=== PATIENT | male | born 1950 | race Hispanic/Latino ===

== ENCOUNTER 2017-12-12 12:53 | Observation (INO) | payer MEDICARE, BC ==
--- NOTE | 2017-12-12 14:36 | ED PDOC ---
HPI: General Adult Time Seen by Provider: 12/12/17 13:59 Chief Complaint (Nursing): Pacemaker Problem Chief Complaint (Provider): Pacemaker Problem History Per: Patient History/Exam Limitations: no limitations Onset/Duration Of Symptoms: Days (x 1) Current Symptoms Are (Timing): Still Present Additional Complaint(s): 67 year old male with a history of CHF, CAD, CABG, atrial fibrillation and a pacemaker/ defibrillator presents to the ED after a pacemaker shock which happened earlier today. Patient reports his pacemaker shocked him, bringing him to his knees. When he tried to get up, he was jolted again. The first time stronger than the latter. He takes Eliquis and Lasix regularly. Denies a history of cardiac stents, chest pain, shortness of breath, leg swelling and loss of consciousness. PMD: Dr. Lazarus Rosas paper cleaner: Dr. Skinner in [place] Past Medical History Reviewed: Historical Data, Nursing Documentation, Vital Signs Vital Signs: Last Vital Signs Temp 97.8 F 12/13/17 12:20 Pulse 80 12/13/17 12:20 Resp 13 12/13/17 12:20 BP 119/67 12/13/17 12:20 Pulse Ox 97 12/13/17 12:20 - Medical History PMH: Atrial Fibrillation, Cardia Arrhythmia, HTN, Hypercholesterolemia, Peripheral Edema Denies: CHF, Chronic Kidney Disease - Surgical History Surgical History: CABG, Pacemaker - Family History Family History: States: Unknown Family Hx - Home Medications Home Medications: Ambulatory Orders Medication Instructions Recorded Apixaban [Eliquis] 2.5 mg PO Q12 12/12/17 Aspirin [Ecotrin] 81 mg PO DAILY 12/12/17 Atorvastatin [Lipitor] 20 mg PO HS 12/12/17 Dapagliflozin Propanediol [Farxiga] 5 mg PO DAILY 12/12/17 Ferrous Sulfate [Feosol] 325 mg PO DAILY 12/12/17 Furosemide [Lasix] 40 mg PO BID 12/12/17 Insulin Detemir [Levemir] 25 unit SC HS 12/12/17 Multivitamin/Iron/Folic Acid 1 tab PO DAILY 12/12/17 [Centrum Complete Multivit Tab] Omeprazole 40 mg PO DAILY 12/12/17 Sacubitril/Valsartan [Entresto 49 1 tab PO Q12 07/30/18 mg-51 mg] Metoprolol Tartrate [Lopressor] 100 mg PO BID #0 12/13/17 - Allergies Allergies/Adverse Reactions: Allergies Allergy/AdvReac Type Severity Reaction Status Date / Time No Known Allergies Allergy Verified 04/10/15 22:34 Review of Systems ROS Statement: Except As Marked, All Systems Reviewed And Found Negative Cardiovascular: Positive for: Other (pacemaker problem). Negative for: Chest Pain, Palpitations Respiratory: Negative for: Shortness of Breath Musculoskeletal: Negative for: Leg Pain (or swelling) Physical Exam - Reviewed Nursing Documentation Reviewed: Yes Vital Signs Reviewed: Yes - Physical Exam Appears: Positive for: Non-toxic, No Acute Distress Head Exam: Positive for: ATRAUMATIC, NORMAL INSPECTION, NORMOCEPHALIC Skin: Positive for: Normal Color, Warm, Dry Eye Exam: Positive for: EOMI, Normal appearance, PERRL Neck: Positive for: Normal, Painless ROM Cardiovascular/Chest: Positive for: Regular Rate, Rhythm, Other (pacemaker/ defibrillator present). Negative for: Murmur Respiratory: Positive for: Normal Breath Sounds. Negative for: Respiratory Distress Gastrointestinal/Abdominal: Positive for: Normal Exam, Soft Extremity: Positive for: Normal ROM (x 4). Negative for: Deformity (leg) Neurologic/Psych: Positive for: Alert, Oriented (x 3). Negative for: Motor/ Sensory Deficits - Laboratory Results Result Diagrams: 12/13/17 06:00 12/13/17 06:00 - ECG ECG: Positive for: Interpreted By Me, Viewed By Me ECG Rhythm: Positive for: Sinus Rhythm, Left Bundle Branch Block, ST/T Changes ( non specific ) Rate: 90 O2 Sat by Pulse Oximetry: 97 (RA) Pulse Ox Interpretation: Normal Medical Decision Making Medical Decision Makin:28 Impression: defibrillator shock Differential diagnoses include but are not limited to: cardiac arrhythmia, pacemaker malfunction Initial Plan: --EKG --BMP --Digoxin --Troponin I --CBC --CXR EKG: Sinus rhythm at 90 bpm; PVCs are present; Left branch bundle block; Left axis deviation and non specific ST/T changes. ICD information: [facility] medical ICD: [id number] Serial number: [id number] Date implanted: 01/03/2012 16:50 --Consulted Dr. Frost due to elevated Troponin levels. --Spoke to Dr. Cortez who will admit patient to her service. CXR FINDINGS: LUNGS: No active pulmonary disease. PLEURA: No significant pleural effusion identified, no pneumothorax apparent. CARDIOVASCULAR: Cardiomegaly. No evidence of acute, significant cardiovascular disease. Position/ configuration of pacemaker\AICD device: Satisfactory. OSSEOUS STRUCTURES: No significant abnormalities. VISUALIZED UPPER ABDOMEN: Normal. OTHER FINDINGS: None. IMPRESSION: No active disease. No significant interval change compared to the prior examination(s). 17:32 --[facility] will send an associate to investigate the pacemaker/ defibrillator tomorrow. ---- Scribe Attestation: Documented by Lillian Ryan, acting as a scribe for Mauro Canela MD Provider Scribe Attestation: All medical record entries made by the Scribe were at my direction and personally dictated by me. I have reviewed the chart and agree that the record accurately reflects my personal performance of the history, physical exam, medical decision making, and the department course for this patient. I have also personally directed, reviewed, and agree with the discharge instructions and disposition. Disposition - Clinical Impression Clinical Impression: ICD (implantable cardioverter-defibrillator) discharge - Patient ED Disposition Is Patient to be Admitted: Yes Discussed With DrLaila: Allison Cortez Doctor Will See Patient In The: ED Counseled Patient/Family Regarding: Studies Performed, Diagnosis - Disposition Disposition Time: 16:50 Condition: FAIR - Pt Status Changed To: Hospital Disposition Of: Observation - POA Present On Arrival: None
[2017-12-12 16:10] LABS: BASO % 0.3 % (0.0-2.0); EOS # 0.3 K/uL (0.0-0.7); EOS % 3.4 % (0.0-4.0); HEMOGLOBIN 16.2 g/dL (12.0-18.0); LYMPH # 0.7 K/uL (1.0-4.3); LYMPH % 9.4 % (20.0-40.0); MEAN CELL VOLUME 99.2 fl (80.0-94.0); MEAN CORPUSCULAR HEMOGLOBIN 32.9 pg (27.0-31.0); MEAN CORPUSCULAR HGB CONC 33.1 g/dL (33.0-37.0); MEAN PLATELET VOLUME 8.8 fl (7.2-11.7); MONO # 0.7 K/uL (0.0-0.8); MONO % 9.2 % (0.0-10.0); NEUT # 5.9 K/uL (1.8-7.0); NEUT % 77.7 % (50.0-75.0); PLATELET COUNT 108 K/uL (130-400); RBC 4.92 Mil/uL (4.40-5.90); RED CELL DISTRIBUTION WIDTH 14.4 % (11.5-14.5); WHITE BLOOD COUNT 7.6 K/uL (4.8-10.8)
--- NOTE | 2017-12-12 16:10 | RAD ---
Date of service: 12/12/2017 HISTORY: pacemaker problem COMPARISON: 04/10/2015 FINDINGS: LUNGS: No active pulmonary disease. PLEURA: No significant pleural effusion identified, no pneumothorax apparent. CARDIOVASCULAR: Cardiomegaly. No evidence of acute, significant cardiovascular disease. Position/ configuration of pacemaker Satisfactory. OSSEOUS STRUCTURES: No significant abnormalities. VISUALIZED UPPER ABDOMEN: Normal. OTHER FINDINGS: None. IMPRESSION: No active disease. No significant interval change compared to the prior examination(s).
[2017-12-12 16:14] LABS: BLOOD UREA NITROGEN 31 mg/dl (9-20); CALCIUM 9.2 mg/dL (8.4-10.2); GFR AFRICAN-AMERICAN > 60; GFR NON-AFRICAN AMERICAN 55
[2017-12-12 17:08] LABS: INR 1.2 (0.9-1.2); PROTHROMBIN TIME 13.2 Seconds (9.8-13.1)
--- NOTE | 2017-12-12 17:59 | CP.PCM.HP ---
History of Present Illness - History of Present Illness History of Present Illness: CC: my defibrillator went off HPI: 67 year old male PMH CAD s/p CABG, CHF EF 25-30%, s/p ICD on Eliquis, HTN, IDDM presents to the ED today after his debrillator fired twice today. Patient denies any chest pain, dyspnea, no acute changes on EKG. Expected troponin elevation 0.4 on admission. Patient complete asymptomatic at this time. HD stable. [facility] to interrogate tomorrow, Dr. Rosendo Frost Cardiology consult. ROS: per HPI all other systems reviewed and negative Present on Admission - Present on Admission Any Indicators Present on Admission: No Past Patient History - Infectious Disease Hx of Infectious Diseases: None - Past Medical History & Family History Past Medical History?: Yes - Past Social History Smoking Status: Never Smoked - CARDIAC Hx Atrial Fibrillation: Yes Hx Cardia Arrhythmia: Yes Hx Congestive Heart Failure: No Hx Hypercholesterolemia: Yes Hx Hypertension: Yes Hx Pacemaker: Yes Hx Peripheral Edema: Yes - NEUROLOGICAL Hx Neurological Disorder: No - HEENT Hx HEENT Problems: Yes Other/Comment: wears eyeglasses - RENAL Hx Chronic Kidney Disease: No - ENDOCRINE/METABOLIC Hx Diabetes Mellitus Type 2: Yes - HEMATOLOGICAL/ONCOLOGICAL Hx Blood Disorders: No - INTEGUMENTARY Hx Dermatological Problems: No - MUSCULOSKELETAL/RHEUMATOLOGICAL Hx Musculoskeletal Disorders: No Hx Falls: No - GASTROINTESTINAL Hx Gastrointestinal Disorders: No - GENITOURINARY/GYNECOLOGICAL Hx Genitourinary Disorders: No - PSYCHIATRIC Hx Psychophysiologic Disorder: No Hx Substance Use: No - SURGICAL HISTORY Hx Coronary Artery Bypass Graft: Yes - ANESTHESIA Hx Anesthesia: Yes Hx Anesthesia Reactions: No Meds Allergies/Adverse Reactions: Allergies Allergy/AdvReac Type Severity Reaction Status Date / Time No Known Allergies Allergy Verified 04/10/15 22:34 Physical Exam - Constitutional Appears: Non-toxic, No Acute Distress - Head Exam Head Exam: ATRAUMATIC, NORMOCEPHALIC - Eye Exam Eye Exam: EOMI, Normal appearance, PERRL - ENT Exam ENT Exam: Mucous Membranes Moist, Normal Exam - Neck Exam Neck exam: Positive for: Full Rom - Respiratory Exam Respiratory Exam: Clear to Auscultation Bilateral, NORMAL BREATHING PATTERN. absent: Wheezes - Cardiovascular Exam Cardiovascular Exam: REGULAR RHYTHM, +S1, +S2 - GI/Abdominal Exam GI & Abdominal Exam: Normal Bowel Sounds, Soft. absent: Mass, Organomegaly - Extremities Exam Extremities exam: Positive for: normal capillary refill, pedal pulses present - Back Exam Back exam: absent: CVA tenderness (L), CVA tenderness (R) - Neurological Exam Neurological exam: Alert, Oriented x3 - Psychiatric Exam Psychiatric exam: Normal Affect, Normal Mood - Skin Skin Exam: Dry, Intact, Normal Color, Warm Results - Vital Signs Recent Vital Signs: Last Vital Signs Temp 97.6 F 12/12/17 12:55 Pulse 90 12/12/17 17:46 Resp 16 12/12/17 14:33 BP 112/61 12/12/17 14:33 Pulse Ox 97 12/12/17 17:46 - Labs Result Diagrams: 12/12/17 15:45 12/12/17 14:45 Labs: Laboratory Results - last 24 hr 12/12/17 12/12/17 12/12/17 14:45 14:45 15:45 WBC 7.6 RBC 4.92 Hgb 16.2 Hct 48.8 MCV 99.2 H MCH 32.9 H MCHC 33.1 RDW 14.4 Plt Count 108 L D MPV 8.8 Neut % (Auto) 77.7 H Lymph % (Auto) 9.4 L [place] % (Auto) 9.2 Eos % (Auto) 3.4 Baso % (Auto) 0.3 Neut # (Auto) 5.9 Lymph # (Auto) 0.7 L [place] # (Auto) 0.7 Eos # (Auto) 0.3 Baso # (Auto) 0.0 PT INR APTT Sodium 142 Potassium 4.9 Chloride 102 Carbon Dioxide 28 Anion Gap 17 BUN 31 H Creatinine 1.3 Est GFR ( Amer) > 60 Est GFR (Non-Af Amer) 55 Random Glucose 207 H Calcium 9.2 Troponin I 0.4690 H* Digoxin < 0.4 L 12/12/17 16:25 WBC RBC Hgb Hct MCV MCH MCHC RDW Plt Count MPV Neut % (Auto) Lymph % (Auto) [place] % (Auto) Eos % (Auto) Baso % (Auto) Neut # (Auto) Lymph # (Auto) [place] # (Auto) Eos # (Auto) Baso # (Auto) PT 13.2 H INR 1.2 APTT 34.0 Sodium Potassium Chloride Carbon Dioxide Anion Gap BUN Creatinine Est GFR ( Amer) Est GFR (Non-Af Amer) Random Glucose Calcium Troponin I Digoxin Assessment & Plan - Assessment and Plan (Free Text) Plan: 67 year old male PMH CAD s/p CABG, CHF EF 25-30%, s/p ICD on Eliquis, HTN, IDDM presents to the ED today after his debrillator fired twice today. Patient denies any chest pain, dyspnea, no acute changes on EKG. Expected troponin elevation 0.4 on admission. Patient complete asymptomatic at this time. HD stable. [facility] to interrogate tomorrow, Dr. Rosendo Frost Cardiology consult. ICD discharge x2 HFrEF 25-30% HTN [facility] to interrogate in am CARDIOLOGY consult Dr. Frost appreciated expected troponin elevation 0.4, trend enzymes pt on Eliquis continue home meds for BP control IDDM accuchecks levemir and ISS DVT ppx on Eliquis
[2017-12-12 18:30] LABS: BANDS 3 % (0-2); EOSINOPHIL 3 % (0-7); LYMPHOCYTE 11 % (20-50); MONOCYTE 6 % (0-10); NEUTROPHIL 77 % (42-75); PLATELET ESTIMATE SLIGHTLY DECREASED (NORMAL); TOTAL CELLS COUNTED 100
[2017-12-12 18:31] LABS: LARGE PLATELETS PRESENT; TOXIC GRANULATION PRESENT
[2017-12-12] MEDS ORDERED: SACUBITRIL PO SCH (21:00)
[2017-12-12] MEDS ORDERED: VALSARTAN PO SCH (21:00)
[2017-12-12] MEDS: Insulin Detemir 100 Units/ml Inj SC SCH ×3 (22:12→22:15)
[2017-12-12] MEDS: Insulin Lispro (humaLOG) 100 Units/ml Inj SC SCH (22:18)
[2017-12-13 06:42] LABS: HEMOGLOBIN 15.2 g/dL (12.0-18.0); MEAN CORPUSCULAR HEMOGLOBIN 33.1 pg (27.0-31.0); MEAN CORPUSCULAR HGB CONC 33.4 g/dL (33.0-37.0); RBC 4.6 Mil/uL (4.40-5.90); RED CELL DISTRIBUTION WIDTH 14.4 % (11.5-14.5); WHITE BLOOD COUNT 6.2 K/uL (4.8-10.8)
[2017-12-13 07:43] VITALS: O2SAT 97
[2017-12-13 07:44] LABS: BLOOD UREA NITROGEN 26 mg/dl (9-20); CALCIUM 8.7 mg/dL (8.4-10.2); GFR AFRICAN-AMERICAN > 60; GFR NON-AFRICAN AMERICAN > 60
[2017-12-13] MEDS: Insulin Lispro (humaLOG) 100 Units/ml Inj SC SCH ×2 (08:20→12:34)
--- NOTE | 2017-12-13 08:26 | CP.PCM.PN ---
Subjective - Date & Time of Evaluation Date of Evaluation: 12/13/17 Time of Evaluation: 08:26 Objective - Vital Signs/Intake and Output Vital Signs (last 24 hours): Temp Pulse Resp BP Pulse Ox 98.0 F 66 17 130/77 97 12/13/17 07:36 12/13/17 07:36 12/13/17 07:36 12/13/17 07:36 12/13/17 07:36 - Medications Medications: Current Medications Acetaminophen (Tylenol 325mg Tab) 650 mg PO Q6 PRN PRN Reason: Fever >100.4 F Apixaban (Eliquis) 2.5 mg PO Q12 [facility] PRN Reason: Protocol Last Admin: 12/12/17 22:11 Dose: 2.5 mg Atorvastatin Calcium (Lipitor) 20 mg PO HS [facility] Last Admin: 12/12/17 22:19 Dose: 20 mg Docusate Sodium (Colace) 100 mg PO BID PRN PRN Reason: Constipation Ferrous Sulfate (Feosol) 325 mg PO DAILY [facility] Furosemide (Lasix) 40 mg PO BID [facility] Home Med (Dapagliflozin Propanediol [Farxiga]) 5 mg PO DAILY [facility] Home Med (Sacubitril/Valsartan [Entresto 49 Mg-51 Mg]) 1 tab PO Q12 [facility] Insulin Detemir (Levemir) 25 units SC HS [facility] Last Admin: 12/12/17 22:15 Dose: 25 units Insulin Human Lispro (Humalog) 0 units SC [facility] PRN Reason: Protocol Last Admin: 12/13/17 08:20 Dose: Not Given Metoprolol Tartrate (Lopressor) 50 mg PO Q8 [facility] Last Admin: 12/13/17 01:22 Dose: 50 mg Multivitamins/Minerals (Therapeutic-M Tab) 1 tab PO DAILY [facility] Ondansetron HCl (Zofran Inj) 4 mg IVP Q6 PRN PRN Reason: Nausea/Vomiting - Labs Labs: 12/13/17 06:00 12/13/17 06:00 PT 13.2 Seconds (9.8-13.1) H 12/12/17 16:25 INR 1.2 (0.9-1.2) 12/12/17 16:25 APTT 34.0 Seconds (25.6-37.1) 12/12/17 16:25
[2017-12-13] MEDS ORDERED: Multivitamin With Minerals Tab PO SCH (09:00)
--- NOTE | 2017-12-13 09:18 | CARD ---
APPROVED REPORT Date of service: 12/12/2017 EKG Measurement Heart [id number] <Conclusion> Sinus rhythm with occasional premature ventricular complexes and premature atrial complexes Left axis deviation Nonspecific intraventricular block Possible Lateral infarct, age undetermined Inferior infarct, age undetermined Abnormal ECG
--- NOTE | 2017-12-13 09:30 | CP.PCM.CON ---
History of Present Illness - History of Present Illness History of Present Illness: This 67-year-old man who had coronary bypass graft surgery in 2008 and required an AICD implant few years back came to the emergency room complaining of 2 DC shocks within a period of couple of hours yesterday. The patient denies any vigorous physical activity preceding these events. This was not followed by loss of consciousness or near syncopal episode. He is a hypertensive with diabetes mellitus who has had a prior myocardial infarction and is being treated for congestive cardiac failure with diabetics as well as a beta lashell and Entresto. Physical examination shows an elderly man who is quite alert awake coherent afebrile and able to lie virtually flat in bed and breathes comfortably at 14 breaths per minute. engine monitor shows sinus rhythm at a heart rate of 74 bpm regular with a rare premature ventricular beats. His jugular venous pressure was not elevated and there was no edema over his lower extremity. The pedal pulses were feeble but distinct of present. There were no carotid bruits. His extremities were warm and his nailbeds are pink. There was no central or peripheral cyanosis. There was no clubbing. A scar of sternotomy was evident. The apex was vaguely felt in the sixth space slightly heaving in character. His first and second heart sounds were normal. There was no murmur or gallop area there were no rales. His abdomen was soft and liver and spleen are not palpable. His electric cardiac gram showed sinus rhythm with a pattern of left bundle branch block. Echocardiogram done in March 2015 shows severe wall motion abnormality involving apex and apical two thirds of anterior wall and septum as well as apical one third of the inferolateral wall. The overall left ventricular systolic function is moderately depressed. His lab data was noted. His electrolytes were normal. Troponin levels were elevated as a consequence of DC shocks. The AICD was interrogated and it revealed 2 bouts of atrial fibrillation with heart rates faster than 220 bpm which is the threshold set up for the AICD for discharge. No ventricular ectopy or V. fib was detected as a cause of his DC shocks. Impression: DC shock due to atrial fibrillation with rapid ventricular rate. Coronary artery disease which is stable with status post coronary bypass graft surgery diabetes mellitus hypertension and congestive cardiac failure. The patient has been observed overnight and has remained stable from cardiovascular point of view. 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 I have increased his dose of metoprolol in an attempt to prevent fast heart rates during atrial fibrillation. Past Patient History - Infectious Disease Hx of Infectious Diseases: None - Past Medical History & Family History Past Medical History?: Yes - Past Social History Smoking Status: Never Smoked - CARDIAC Hx Atrial Fibrillation: Yes Hx Cardia Arrhythmia: Yes Hx Congestive Heart Failure: No Hx Hypercholesterolemia: Yes Hx Hypertension: Yes Hx Pacemaker: Yes Hx Peripheral Edema: Yes - NEUROLOGICAL Hx Neurological Disorder: No - HEENT Hx HEENT Problems: Yes Other/Comment: wears eyeglasses - RENAL Hx Chronic Kidney Disease: No - ENDOCRINE/METABOLIC Hx Diabetes Mellitus Type 2: Yes - HEMATOLOGICAL/ONCOLOGICAL Hx Blood Disorders: No - INTEGUMENTARY Hx Dermatological Problems: No - MUSCULOSKELETAL/RHEUMATOLOGICAL Hx Musculoskeletal Disorders: No Hx Falls: No - GASTROINTESTINAL Hx Gastrointestinal Disorders: No - GENITOURINARY/GYNECOLOGICAL Hx Genitourinary Disorders: No - PSYCHIATRIC Hx Psychophysiologic Disorder: No Hx Substance Use: No - SURGICAL HISTORY Hx Coronary Artery Bypass Graft: Yes - ANESTHESIA Hx Anesthesia: Yes Hx Anesthesia Reactions: No Meds Allergies/Adverse Reactions: Allergies Allergy/AdvReac Type Severity Reaction Status Date / Time No Known Allergies Allergy Verified 04/10/15 22:34 - Medications Medications: Current Medications Acetaminophen (Tylenol 325mg Tab) 650 mg PO Q6 PRN PRN Reason: Fever >100.4 F Apixaban (Eliquis) 2.5 mg PO Q12 [facility] PRN Reason: Protocol Last Admin: 12/12/17 22:11 Dose: 2.5 mg Atorvastatin Calcium (Lipitor) 20 mg PO HS [facility] Last Admin: 12/12/17 22:19 Dose: 20 mg Docusate Sodium (Colace) 100 mg PO BID PRN PRN Reason: Constipation Ferrous Sulfate (Feosol) 325 mg PO DAILY [facility] Furosemide (Lasix) 40 mg PO BID [facility] Home Med (Dapagliflozin Propanediol [Farxiga]) 5 mg PO DAILY [facility] Home Med (Sacubitril/Valsartan [Entresto 49 Mg-51 Mg]) 1 tab PO Q12 [facility] Insulin Detemir (Levemir) 25 units SC [facility] Last Admin: 12/12/17 22:15 Dose: 25 units Insulin Human Lispro (Humalog) 0 units SC [facility] PRN Reason: Protocol Last Admin: 07/31/18 08:20 Dose: Not Given Metoprolol Tartrate (Lopressor) 50 mg PO Q8 [facility] Last Admin: 12/13/17 01:22 Dose: 50 mg Multivitamins/Minerals (Therapeutic-M Tab) 1 tab PO DAILY [facility] Ondansetron HCl (Zofran Inj) 4 mg IVP Q6 PRN PRN Reason: Nausea/Vomiting Results - Vital Signs Recent Vital Signs: Last Vital Signs Temp 98.0 F 12/13/17 07:36 Pulse 66 12/13/17 07:36 Resp 17 12/13/17 07:36 BP 130/77 12/13/17 07:36 Pulse Ox 97 12/13/17 07:36 - Labs Result Diagrams: 12/13/17 06:00 12/13/17 06:00 Labs: Laboratory Results - last 24 hr 12/12/17 12/12/17 12/12/17 14:45 14:45 15:45 WBC 7.6 RBC 4.92 Hgb 16.2 Hct 48.8 MCV 99.2 H MCH 32.9 H MCHC 33.1 RDW 14.4 Plt Count 108 L D MPV 8.8 Neut % (Auto) 77.7 H Lymph % (Auto) 9.4 L [place] % (Auto) 9.2 Eos % (Auto) 3.4 Baso % (Auto) 0.3 Neut # (Auto) 5.9 Lymph # (Auto) 0.7 L [place] # (Auto) 0.7 Eos # (Auto) 0.3 Baso # (Auto) 0.0 Neutrophils % (Manual) 77 H Band Neutrophils % 3 H Lymphocytes % (Manual) 11 L Monocytes % (Manual) 6 Eosinophils % (Manual) 3 Toxic Granulation Present Platelet Estimate Slightly decreased L Large Platelets Present Macrocytosis (manual) Slight PT INR APTT Sodium 142 Potassium 4.9 Chloride 102 Carbon Dioxide 28 Anion Gap 17 BUN 31 H Creatinine 1.3 Est GFR ( Amer) > 60 Est GFR (Non-Af Amer) 55 POC Glucose (mg/dL) Random Glucose 207 H Calcium 9.2 Troponin I 0.4690 H* Digoxin < 0.4 L 12/12/17 12/12/17 12/12/17 16:25 20:30 21:06 WBC RBC Hgb Hct MCV MCH MCHC RDW Plt Count MPV Neut % (Auto) Lymph % (Auto) [place] % (Auto) Eos % (Auto) Baso % (Auto) Neut # (Auto) Lymph # (Auto) [place] # (Auto) Eos # (Auto) Baso # (Auto) Neutrophils % (Manual) Band Neutrophils % Lymphocytes % (Manual) Monocytes % (Manual) Eosinophils % (Manual) Toxic Granulation Platelet Estimate Large Platelets Macrocytosis (manual) PT 13.2 H INR 1.2 APTT 34.0 Sodium Potassium Chloride Carbon Dioxide Anion Gap BUN Creatinine Est GFR ( Amer) Est GFR (Non-Af Amer) POC Glucose (mg/dL) 195 H Random Glucose Calcium Troponin I 1.7700 H* Digoxin 12/13/17 12/13/17 12/13/17 01:47 06:00 06:00 WBC 6.2 RBC 4.60 Hgb 15.2 Hct 45.6 MCV 99.0 H MCH 33.1 H MCHC 33.4 RDW 14.4 Plt Count 83 L D MPV Neut % (Auto) Lymph % (Auto) [place] % (Auto) Eos % (Auto) Baso % (Auto) Neut # (Auto) Lymph # (Auto) [place] # (Auto) Eos # (Auto) Baso # (Auto) Neutrophils % (Manual) Band Neutrophils % Lymphocytes % (Manual) Monocytes % (Manual) Eosinophils % (Manual) Toxic Granulation Platelet Estimate Large Platelets Macrocytosis (manual) PT INR APTT Sodium 143 Potassium 3.6 Chloride 106 Carbon Dioxide 26 Anion Gap 15 BUN 26 H Creatinine 1.1 Est GFR ( Amer) > 60 Est GFR (Non-Af Amer) > 60 POC Glucose (mg/dL) Random Glucose 127 H Calcium 8.7 Troponin I 1.1500 H* Digoxin 12/13/17 08:06 WBC RBC Hgb Hct MCV MCH MCHC RDW Plt Count MPV Neut % (Auto) Lymph % (Auto) [place] % (Auto) Eos % (Auto) Baso % (Auto) Neut # (Auto) Lymph # (Auto) [place] # (Auto) Eos # (Auto) Baso # (Auto) Neutrophils % (Manual) Band Neutrophils % Lymphocytes % (Manual) Monocytes % (Manual) Eosinophils % (Manual) Toxic Granulation Platelet Estimate Large Platelets Macrocytosis (manual) PT INR APTT Sodium Potassium Chloride Carbon Dioxide Anion Gap BUN Creatinine Est GFR ( Amer) Est GFR (Non-Af Amer) POC Glucose (mg/dL) 105 Random Glucose Calcium Troponin I Digoxin
--- NOTE | 2017-12-13 10:39 | CP.PCM.DIS ---
Provider - Provider Date of Admission: 12/12/17 16:50 Attending physician: Allison Cortez DO Primary care physician: Dr Lazarus Rosas Consults: Dr Randhawa Time Spent in preparation of Discharge (in minutes): 25 Diagnosis - Discharge Diagnosis (1) ICD (implantable cardioverter-defibrillator) discharge Status: Acute Priority: High Comment: AICD discharged because of 2 bouts of AFib with RVR at 220/min. Metoprolol increased to 100mg PO BID (2) Paroxysmal A-fib Status: Acute Comment: presently in sinus with controlled rate. continue Metoprolol at higher dose and Eliquis (3) CAD (coronary artery disease) Status: Chronic Comment: continue ASA, Lipitor and Metoprolol (4) CHF (congestive heart failure) Status: Chronic Comment: continue Lasix and Sacubitril/Valsartan (5) Diabetes mellitus Status: Chronic Priority: Low Comment: BS controlled. continue Levemir 25 units SC HS (6) HTN (hypertension) Status: Chronic Comment: BP controlled. continue Metoprolol and Sacubitril/Valsartan Hospital Course - Lab Results Lab Results: Most Recent Lab Values WBC 6.2 K/uL (4.8-10.8) 12/13/17 06:00 RBC 4.60 Mil/uL (4.40-5.90) 12/13/17 06:00 Hgb 15.2 g/dL (12.0-18.0) 12/13/17 06:00 Hct 45.6 % (35.0-51.0) 12/13/17 06:00 MCV 99.0 fl (80.0-94.0) H 12/13/17 06:00 MCH 33.1 pg (27.0-31.0) H 12/13/17 06:00 MCHC 33.4 g/dL (33.0-37.0) 12/13/17 06:00 RDW 14.4 % (11.5-14.5) 12/13/17 06:00 Plt Count 83 K/uL (130-400) L D 12/13/17 06:00 MPV 8.8 fl (7.2-11.7) 12/12/17 15:45 Neut % (Auto) 77.7 % (50.0-75.0) H 12/12/17 15:45 Lymph % (Auto) 9.4 % (20.0-40.0) L 12/12/17 15:45 Callahan % (Auto) 9.2 % (0.0-10.0) 12/12/17 15:45 Eos % (Auto) 3.4 % (0.0-4.0) 12/12/17 15:45 Baso % (Auto) 0.3 % (0.0-2.0) 12/12/17 15:45 Neut # (Auto) 5.9 K/uL (1.8-7.0) 12/12/17 15:45 Lymph # (Auto) 0.7 K/uL (1.0-4.3) L 12/12/17 15:45 Callahan # (Auto) 0.7 K/uL (0.0-0.8) 12/12/17 15:45 Eos # (Auto) 0.3 K/uL (0.0-0.7) 12/12/17 15:45 Baso # (Auto) 0.0 K/uL (0.0-0.2) 12/12/17 15:45 Neutrophils % (Manual) 77 % (42-75) H 12/12/17 15:45 Band Neutrophils % 3 % (0-2) H 12/12/17 15:45 Lymphocytes % (Manual) 11 % (20-50) L 12/12/17 15:45 Monocytes % (Manual) 6 % (0-10) 12/12/17 15:45 Eosinophils % (Manual) 3 % (0-7) 12/12/17 15:45 Toxic Granulation Present 12/12/17 15:45 Platelet Estimate Slightly decreased (NORMAL) L 12/12/17 15:45 Large Platelets Present 12/12/17 15:45 Macrocytosis (manual) Slight 12/12/17 15:45 PT 13.2 Seconds (9.8-13.1) H 12/12/17 16:25 INR 1.2 (0.9-1.2) 12/12/17 16:25 APTT 34.0 Seconds (25.6-37.1) 12/12/17 16:25 Sodium 143 mmol/l (132-148) 12/13/17 06:00 Potassium 3.6 MMOL/L (3.6-5.0) 12/13/17 06:00 Chloride 106 mmol/L (98-107) 12/13/17 06:00 Carbon Dioxide 26 mmol/L (22-30) 12/13/17 06:00 Anion Gap 15 (10-20) 12/13/17 06:00 BUN 26 mg/dl (9-20) H 12/13/17 06:00 Creatinine 1.1 mg/dl (0.8-1.5) 12/13/17 06:00 Est GFR ( Amer) > 60 12/13/17 06:00 Est GFR (Non-Af Amer) > 60 12/13/17 06:00 POC Glucose (mg/dL) 105 mg/dL (65-110) 12/13/17 08:06 Random Glucose 127 mg/dL (75-110) H 12/13/17 06:00 Calcium 8.7 mg/dL (8.4-10.2) 12/13/17 06:00 Troponin I 1.1500 ng/mL (0.00-0.120) H* 12/13/17 01:47 Digoxin < 0.4 ng/mL (0.8-2.0) L 12/12/17 14:45 - Hospital Course Hospital Course: 67 yo male with history of CAD s/p CABG, CHF EF 25-30%, s/p AICD, Paroxysmal AFib on Eliquis, HTN and IDDM came in because of getting shock from his AICD within 2 hours interval. The patient denied chest pain or SOB. The AICD was interrogated and it revealed 2 bouts of atrial fibrillation with heart rates faster than 220 bpm which is the threshold set up for the AICD for discharge. The patient remained stable and was recommended by cardiology for discharge. 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 Discharge Exam - Head Exam Head Exam: ATRAUMATIC, NORMAL INSPECTION, NORMOCEPHALIC - Eye Exam Eye Exam: absent: Scleral icterus - ENT Exam ENT Exam: Mucous Membranes Moist - Respiratory Exam Respiratory Exam: absent: Rales, Rhonchi, Wheezes, Respiratory Distress - Cardiovascular Exam Cardiovascular Exam: REGULAR RHYTHM, +S1, +S2 - GI/Abdominal Exam GI & Abdominal Exam: Soft. absent: Tenderness - Rectal Exam Rectal Exam: Deferred - Back Exam Back exam: absent: tenderness - Neurological Exam Neurological exam: Alert, Oriented x3 - Psychiatric Exam Psychiatric exam: Normal Affect - Skin Skin Exam: Dry, Intact Discharge Plan - Follow Up Plan Condition: GOOD Disposition: HOME/ ROUTINE
[2017-12-13 11:14] LABS: B-TYPE NATRIURETIC PEPTIDE 4380 pg/ml (0-900)
[2017-12-13 12:32] VITALS: BP 119/67; RESP 13; TEMP 97.8
[2017-12-14] MEDS ORDERED: Oxycodone/Acetaminophen 5/325 mg Tab ONE (16:19)
[2017-12-15 18:25] VITALS: PULSE 90
== END 2017-12-13 10:27 | disposition home or self-care (01) ==
LOC: H.ER 12:53 → H.ERHOLD 16:50
PROVIDERS: ADMIT Student in an Organized Health Care Education/Training Program; ATTEND Student in an Organized Health Care Education/Training Program
DX: I48.0 Paroxysmal atrial fibrillation (principal); I25.10 Atherosclerotic heart disease of native coronary artery without angina pectoris; Z95.1 Presence of aortocoronary bypass graft; Z79.01 Long term (current) use of anticoagulants; I25.2 Old myocardial infarction; Z95.810 Presence of automatic (implantable) cardiac defibrillator; I11.0 Hypertensive heart disease with heart failure; E78.00 Pure hypercholesterolemia, unspecified; E11.9 Type 2 diabetes mellitus without complications; Z79.4 Long term (current) use of insulin; I50.22 Chronic systolic (congestive) heart failure; I44.7 Left bundle-branch block, unspecified
CPT/HCPCS: 71045; 80048; 80162; 82948; 83880; 84484; 85025; 85027; 85610; 85730; 93005; 96372; 99285; G0378